=== PATIENT | female | born 1990 | race Caucasian/White ===

== ENCOUNTER 2016-10-05 13:32 | Emergency (ER) | payer OTHER ==
[~2016-10-05] VITALS: Ht 160 cm; Wt 54.8 kg
[2016-10-05] MEDS ORDERED: ACYC200CA PO (13:46)
[2016-10-05] MEDS ORDERED: MECLIZINE 25 MG TABLET PO ONE (14:30)
--- NOTE | 2016-10-05 14:49 | REP ---
Noncontrast brain CT: History: Headache. Trauma. Findings: Digital lateral finishing range feeder radiograph is unremarkable. Bone window settings demonstrate an intact bony calvarium. No skull fracture or significant scalp hematoma is appreciated. Visualized paranasal sinuses are clear. No intraorbital abnormality is seen. On soft-tissue window settings, the lateral, third, and fourth ventricles are normal in size and position. Rodriguez-white differentiation pattern is normal above below the tentorium. There is no evidence of intracranial hemorrhage. No mass, extra-axial fluid collection, or midline shift is seen. There is no evidence of infarction. Impression: Negative noncontrast head CT. Signed by Tito Lopez MD 10/05/2016 06:21 P
[2016-10-05] MEDS ORDERED: NAPR500T PO (15:06)
[2016-10-05] MEDS ORDERED: MECL1CHW2 PO (15:06)
[2016-10-05 15:20] VITALS: BP 101/62
== END 2016-10-05 15:22 | disposition home or self-care (01) ==
LOC: M ED 13:32
DX: F07.81 Postconcussional syndrome (principal); K58.9 Irritable bowel syndrome, unspecified; Z88.2 Allergy status to sulfonamides

== ENCOUNTER 2017-03-30 11:51 | Inpatient (IN) | payer OTHER ==
[2017-03-30] MEDS: PRENATAL VITAMINS CHEWABLE TABLET PO (09:00)
[2017-03-30 13:55] LABS: AMPHETAMINES URINE REFLEX NEGATIVE (NEGATIVE); BARBITURATES URINE REFLEX NEGATIVE (NEGATIVE); BENZODIAZEPINES URINE REFLEX NEGATIVE (NEGATIVE); CANNABINOIDS URINE REFLEX NEGATIVE (NEGATIVE); COCAINE METABOLITE URINE REFLE NEGATIVE (NEGATIVE); METHADONE URINE REFLEX NEGATIVE (NEGATIVE); OPIATES URINE REFLEX NEGATIVE (NEGATIVE); PHENCYCLIDINE URINE REFLEX NEGATIVE (NEGATIVE)
[2017-03-30 15:25] LABS: HEMATOCRIT 33.8 % (36.0-47.0); MEAN CORPUSCULAR HEMOGLOBIN 31.5 pg (27.0-33.0); MEAN CORPUSCULAR HGB CONC 35.5 g/dl (32.0-36.5); MEAN CORPUSCULAR VOLUME 88.7 fl (80.0-96.0); PLATELET COUNT, AUTOMATED 190 10^3/uL (150-450); RED BLOOD COUNT 3.81 10^6/uL (4.00-5.40); RED CELL DISTRIBUTION WIDTH 12.5 % (11.5-14.5); WHITE BLOOD COUNT 9.5 10^3/uL (4.0-10.0)
[2017-03-30] MEDS: PROGESTERONE 200 MG XX (16:56)
[2017-03-30] MEDS: ACETAMINOPHEN 325 MG TAB PO (16:57)
[2017-03-31] MEDS: PRENATAL VITAMINS CHEWABLE TABLET PO (09:35)
[2017-03-31] MEDS: PROGESTERONE 200 MG XX (09:35)
[2017-03-31] MEDS: ACETAMINOPHEN 325 MG TAB PO (09:39)
== END 2017-03-31 14:00 | disposition home or self-care (01) | DRG 782 ==
LOC: M OBS 11:51
DX: O26.872 Cervical shortening, second trimester (principal); Z3A.20 20 weeks gestation of pregnancy

== ENCOUNTER 2017-04-04 00:37 | Outpatient (CLI) | payer OTHER | END 2017-04-04 02:10 | disposition home or self-care (01) | LOC: M LDO 00:37 | DX: O99.89 Other specified diseases and conditions complicating pregnancy, childbirth and the puerperium (principal); R10.9 Unspecified abdominal pain; O26.872 Cervical shortening, second trimester; Z3A.21 21 weeks gestation of pregnancy | CPT/HCPCS: 59025 ==

== ENCOUNTER 2017-04-22 14:12 | Outpatient (CLI) | payer OTHER ==
[2017-04-22] MEDS: BETAMETHASONE SOLUSPAN 6MG/ML INJ 5ML (J0702) IM (15:00)
== END 2017-04-22 16:20 | disposition home or self-care (01) ==
LOC: M LDO 14:12
DX: O26.872 Cervical shortening, second trimester (principal); O62.2 Other uterine inertia; Z3A.23 23 weeks gestation of pregnancy; Z79.899 Other long term (current) drug therapy
CPT/HCPCS: 96372